=== PATIENT | female | born 2000 | race Caucasian/White ===

== ENCOUNTER 2022-06-27 16:42 | Emergency (ER) | payer OTHER ==
--- OUTSIDE RECORDS SUMMARY | 2022-06-27 16:51 | XMS REPORT | Continuity of Care Document ---
:2000 Author Organization [facility] t Address [address] [place] [address] Care Team Providers Name Role Phone KIAH LOPEZ Primary Care Physician Unavailable MAYRA MOE Attending Clinician Unavailable LIBBY REEVES Attending Clinician Unavailable Libby Odonnell Attending Clinician Ramona Baltazar Attending Clinician Kiah Lopez PA-C Attending Clinician KIAH LOPEZ Attending Clinician Unavailable DALIA LOVING Attending Clinician Unavailable Doctor Unassigned, Geraldine Attending Clinician Unavailable ETTA STRICKLAND Attending Clinician Unavailable ETTA STRICKLAND Admitting Clinician Unavailable Payers Payer Name Policy Type Policy Number Effective Date Expiration Date [facility] [id number] 2017 00:00:00 Problems Condition Condition Condition Status Onset Resolution Last Treating Co mments Source Name Details Category Date Date Treatment Clinician Date BV BV Disease Active 2019-0 Univers (bacterial (bacterial 2-05 it y of vaginosis[place] [facility] Allergies, Adverse Reactions, Alerts Allergy Allergy Status Severity Reaction(s) Onset Inactive Treating Comm ents Source Name Type Date Date Clinician NO KNOWN Drug Active Univers ALLERGIE Class ity of S [facility] Social History Social Habit Start Date Stop Date Quantity Comments Source Exposure to Yes [facility] SARS-CoV-2 (event) Medica l Branch Tobacco use and 2018-08-13 2018-08-13 Never used [facility] exposure 00:00:00 00:00:00 [facility] Sex Assigned At [birth year] [facility] 00:00:00 00:00:00 [facility] Branch Smoking Status Start Date Stop Date Source Never smoker [facility] Medications Ordered Filled Start Stop Current Ordering Indication Dosage Frequency Signature Comments Components Source Medication Medication Date Date Medication? Clinician (SIG) Name Name sulfamethox Yes [id number] 1{tbl} Take 1 Univers azole-trime 08-10 [id number] tablet by i ty of thoprim 00:00: mouth 2 [place] (BACTRIM 00 (two) Medical DS) 800-160 times Branch mg per daily. tablet sulfamethox Yes [id number] 1{tbl} Take 1 Univers azole-trime 08-10 [id number] tablet by i ty of thoprim 00:00: mouth 2 [place] (BACTRIM 00 (two) Medical DS) 800-160 times Branch mg per daily. tablet sulfamethox Yes [id number] 1{tbl} Take 1 Univers azole-trime 08-10 [id number] tablet by i ty of thoprim 00:00: mouth 2 [place] (BACTRIM 00 (two) Medical DS) 800-160 times Branch mg per daily. tablet mupirocin 2 2020- No [id number] Apply to Univers % ointment 08-10 [id number] area(s) 3 i ty of 00:00: 04:59 (three) [place] 00 :00 times Medical daily for Branch 7 days. mupirocin 2 2020- No [id number] Apply to Univers % ointment 08-10 [id number] area(s) 3 i ty of 00:00: 04:59 (three) [place] 00 :00 times Medical daily for Branch 7 days. Immunizations Ordered Immunization Filled Date Status Comments Sour ce Name Immunization Name Meningococcal B, OMV 2019-05-05 Completed Univ ersity of 00:00:00 [place] [facility] Meningococcal B, OMV 2019-05-05 Completed Univ ersity of 00:00:00 [facility] Meningococcal B, OMV 2019-05-05 Completed Univ ersity of 00:00:00 [facility] PPD (TB) 2018-11-27 Completed University of 00:00:00 [facility] Meningococcal 2018-11-27 Completed University of Oligosaccharide 00:00:00 [place] Med ical (groups A, C, Y and Branc h W-135) conjugate vaccine (MCV4O) Meningococcal B, OMV 2018-11-27 Completed Univ ersity of 00:00:00 [facility] Influenza Virus 2018-11-27 Completed Universit y of Vaccine Quad .5 mL IM 00:00:00 [place] [facility] 6+ MO Branch PPD (TB) 2018-11-27 Completed University of 00:00:00 [facility] Meningococcal 2018-11-27 Completed University of Oligosaccharide 00:00:00 [place] [facility] (groups A, C, Y and Branc h W-135) conjugate vaccine (MCV4O) Meningococcal B, OMV 2018-11-27 Completed Univ ersity of 00:00:00 [facility] Influenza Virus 2018-11-27 Completed Universit y of Vaccine Quad .5 mL IM 00:00:00 [place] [facility] 6+ MO Branch PPD (TB) 2018-11-27 Completed University of 00:00:00 [facility] Meningococcal 2018-11-27 Completed University of Oligosaccharide 00:00:00 [place] [facility] (groups A, C, Y and Branc h W-135) conjugate vaccine (MCV4O) Meningococcal B, OMV 2018-11-27 Completed Univ ersity of 00:00:00 [facility] Influenza Virus 2018-11-27 Completed Universit y of Vaccine Quad .5 mL IM 00:00:00 [place] [facility] 6+ MO Branch HPV 2015-09-14 Completed University of 00:00:00 [facility] Influenza Virus 2015-09-14 Completed Universit y of Vaccine - Whole 00:00:00 [facility] ical Branch HPV 2015-09-14 Completed University of 00:00:00 [facility] Influenza Virus 2015-09-14 Completed Universit y of Vaccine - Whole 00:00:00 [facility] ical Branch HPV 2015-09-14 Completed University of 00:00:00 [facility] Influenza Virus 2015-09-14 Completed Universit y of Vaccine - Whole 00:00:00 [facility] Varicella 2013-03-06 Completed University of (varivax)(chicken pox) 00:00:00 [facility] University of 00:00:00 [facility] Meningococcal Vaccine 2013-03-06 Completed Uni versity of 00:00:00 [facility] Varicella 2013-03-06 Completed University of (varivax)(chicken pox) 00:00:00 [facility] 2013-[facility] Completed University of 00:00:00 [facility] Meningococcal Vaccine 2013-03-06 Completed Uni versity of 00:00:00 [facility] Varicella 2013-03-06 Completed University of (varivax)(chicken pox) 00:00:00 [facility] 2013-03-06 Completed University of 00:00:00 [facility] Meningococcal Vaccine 2013-03-06 Completed Uni versity of 00:00:00 [facility] HEPATITIS A 2006-02-05 Completed University of 00:00:00 [facility] HEPATITIS A 2006-02-05 Completed University of 00:00:00 [facility] HEPATITIS A 2006-02-05 Completed University of 00:00:00 [facility] DTAP 2005-06-19 Completed University of 00:00:00 [facility] HEPATITIS A 2005-06-19 Completed University of 00:00:00 [facility] MMR 2005-06-19 Completed University of 00:00:00 [facility] Polio (IPV/OPV) 2005-06-19 Completed Universit y of 00:00:00 [facility] DTAP 2005-06-19 Completed University of 00:00:00 [facility] HEPATITIS A 2005-06-19 Completed University of 00:00:00 [facility] MMR 2005-06-19 Completed University of 00:00:00 [facility] Polio (IPV/OPV) 2005-06-19 Completed Universit y of 00:00:00 [facility] DTAP 2005-06-19 Completed University of 00:00:00 [facility] HEPATITIS A 2005-06-19 Completed University of 00:00:00 [facility] MMR 2005-06-19 Completed University of 00:00:00 [facility] Polio (IPV/OPV) 2005-06-19 Completed Universit y of 00:00:00 [facility] Pneumococcal 13 2003-05-22 Completed Universit y of Conjugate, PCV13 00:00:00 [facility] dical (Prevnar 13) Branch Pneumococcal 13 2003-05-22 Completed Universit y of Conjugate, PCV13 00:00:00 [facility] dical (Prevnar 13) Branch Pneumococcal 13 2003-05-22 Completed Universit y of Conjugate, PCV13 00:00:00 [facility] dical (Prevnar 13) Branch DTAP 2002-12-11 Completed University of 00:00:00 [facility] HIB 4 Dose Schedule 2002-12-11 Completed Unive rsity of 00:00:00 [facility] DTAP 2002-12-11 Completed University of 00:00:00 [facility] HIB 4 Dose Schedule 2002-12-11 Completed Unive rsity of 00:00:00 [facility] DTAP 2002-12-11 Completed University of 00:00:00 [facility] HIB 4 Dose Schedule 2002-12-11 Completed Unive rsity of 00:00:00 [facility] MMR 2002-08-15 Completed University of 00:00:00 [facility] MMR 2002-08-15 Completed University of 00:00:00 [facility] MMR 2002-08-15 Completed University of 00:00:00 [facility] Varicella 2002-04-24 Completed University of (varivax)(chicken pox) 00:00:00 [facility] Polio (IPV/OPV) 2002-04-24 Completed Universit y of 00:00:00 [facility] Varicella 2002-04-24 Completed University of (varivax)(chicken pox) 00:00:00 [facility] Polio (IPV/OPV) 2002-04-24 Completed Universit y of 00:00:00 [facility] Varicella 2002-04-24 Completed University of (varivax)(chicken pox) 00:00:00 [facility] Polio (IPV/OPV) 2002-04-24 Completed Universit y of 00:00:00 [facility] Hep B, Adol or Pedi 2002-01-30 Completed Unive rsity of Dosage 00:00:00 [facility] Hep B, Adol or Pedi 2002-01-30 Completed Unive rsity of Dosage 00:00:00 [place] [facility] Hep B, Adol or Pedi 2002-01-30 Completed Unive rsity of Dosage 00:00:00 [facility] DTAP 2001 Completed University of 00:00:00 [facility] HIB 4 Dose Schedule 2001 Completed Unive rsity of 00:00:00 [facility] Pneumococcal 13 2001 Completed Universit y of Conjugate, PCV13 00:00:00 [place] [facility] (Prevnar 13) Branch DTAP 2001 Completed University of 00:00:00 [facility] HIB 4 Dose Schedule 2001 Completed Unive rsity of 00:00:00 [facility] Pneumococcal 13 2001 Completed Universit y of Conjugate, PCV13 00:00:00 [place] [facility] (Prevnar 13) Branch DTAP 2001 Completed University of 00:00:00 [facility] HIB 4 Dose Schedule 2001 Completed Unive rsity of 00:00:00 [facility] Pneumococcal 13 2001 Completed Universit y of Conjugate, PCV13 00:00:00 [place] [facility] (Prevnar 13) Branch DTAP 2001 Completed University of 00:00:00 [facility] HIB 4 Dose Schedule 2001 Completed Unive rsity of 00:00:00 [facility] Pneumococcal 13 2001 Completed Universit y of Conjugate, PCV13 00:00:00 [place] [facility] (Prevnar 13) Branch Polio (IPV/OPV) 2001 Completed Universit y of 00:00:00 [facility] DTAP 2001 Completed University of 00:00:00 [facility] HIB 4 Dose Schedule 2001 Completed Unive rsity of 00:00:00 [facility] Pneumococcal 13 2001 Completed Universit y of Conjugate, PCV13 00:00:00 [place] [facility] (Prevnar 13) Branch Polio (IPV/OPV) 2001 Completed Universit y of 00:00:00 [facility] DTAP 2001 Completed University of 00:00:00 [facility] HIB 4 Dose Schedule 2001 Completed Unive rsity of 00:00:00 [facility] Pneumococcal 13 2001 Completed Universit y of Conjugate, PCV13 00:00:00 [place] [facility] (Prevnar 13) Branch Polio (IPV/OPV) 2001 Completed Universit y of 00:00:00 [facility] DTAP 2001 Completed University of 00:00:00 [facility] HIB 4 Dose Schedule 2001 Completed Unive rsity of 00:00:00 [facility] Pneumococcal 13 2001 Completed Universit y of Conjugate, PCV13 00:00:00 [facility] dical (Prevnar 13) Branch Polio (IPV/OPV) 2001 Completed Universit y of 00:00:00 [facility] DTAP 2001 Completed University of 00:00:00 [facility] HIB 4 Dose Schedule 2001 Completed Unive rsity of 00:00:00 [facility] Pneumococcal 13 2001 Completed Universit y of Conjugate, PCV13 00:00:00 [facility] dical (Prevnar 13) Branch Polio (IPV/OPV) 2001 Completed Universit y of 00:00:00 [facility] DTAP 2001 Completed University of 00:00:00 [facility] HIB 4 Dose Schedule 2001 Completed Unive rsity of 00:00:00 [facility] Pneumococcal 13 2001 Completed Universit y of Conjugate, PCV13 00:00:00 [facility] dical (Prevnar 13) Branch Polio (IPV/OPV) 2001 Completed Universit y of 00:00:00 [facility] Hep B, Adol or Pedi 2001 Completed Unive rsity of Dosage 00:00:00 [facility] Hep B, Adol or Pedi 2001 Completed Unive rsity of Dosage 00:00:00 [facility] Hep B, Adol or Pedi 2001 Completed Unive rsity of Dosage 00:00:00 [facility] Hep B, Adol or Pedi 2001 Completed Unive rsity of Dosage 00:00:00 [facility] Hep B, Adol or Pedi 2001 Completed Unive rsity of Dosage 00:00:00 [facility] Hep B, Adol or Pedi 2001 Completed Unive rsity of Dosage 00:00:00 [place] [facility] Vital Signs Vital Name Observation Time Observation Value Comments Source Systolic blood 2021-11-30 18:12:00 140 mm[Hg] Univer sity of pressure [facility] Diastolic blood 2021-11-30 18:12:00 90 mm[Hg] Unive rsity of pressure [facility] Heart rate 2021-11-30 18:12:00 77 /min Universi ty of [facility] Body temperature 2021-11-30 18:12:00 36.83 Jackie Univ ersity of [facility] Branch Respiratory rate 2021-11-30 18:12:00 18 /min Univ ersity of [facility] Body height 2021-11-30 18:12:00 165.1 cm Universi ty of [facility] Body weight 2021-11-30 18:12:00 85.957 kg Universi ty of [facility] BMI 2021-11-30 18:12:00 31.53 kg/m2 Universi ty of [facility] Oxygen saturation in 2021-11-30 18:12:00 97 /min University of Arterial blood by [employer] kirsten Pulse oximetry Branch Systolic blood 2021-08-10 13:58:00 118 mm[Hg] Univer sity of pressure [facility] Diastolic blood 2021-08-10 13:58:00 81 mm[Hg] Unive rsity of [facility] Heart rate 2021-08-10 13:58:00 71 /min Universi ty of [place] [facility] Body temperature 2021-08-10 13:58:00 36.33 Jackie [facility] Respiratory rate 2021-08-10 13:58:00 18 /min Univ ersity of [facility] Body weight 2021-08-10 13:58:00 84.823 kg Universi ty of [facility] Oxygen saturation in 2021-08-10 13:58:00 99 /min University of Arterial blood by [employer] kirsten Pulse oximetry Branch Procedures This patient has no known procedures. Encounters Start End Encounter Admission Attending Care Care Encounter Source Date/Time Date/Time Type Type Clinicians Facility Department ID 2021-12-01 2021-12-01 Outpatient Heike MOE [facility] [id number] Univers 09:40:00 09:40:00 MAYRA [id number] ity of [facility] 2021-12-01 2021-12-01 Outpatient R ABHI [facility] [id number] Univers 09:40:00 09:40:00 MAYRA doug [facility] 2021-11-30 2021-11-30 Outpatient R LEANDRO [facility] [id number] Univers 12:00:00 12:43:15 LIBBY ity [facility] 2021-11-30 2021-11-30 Urgent Maryellen Reevesy [facility] [id number] Univers 12:00:00 12:43:15 Care TusharRamona galvez [facility] [id number] ity of [place] [id number] [place] TAMIR?BLEA [id number] [address] MEDICAL OFFICE BUILDING 2021-11-30 2021-11-30 Outpatient R [facility] [id number] Univers 12:00:00 12:00:00 [id number] ity [facility] 2021-08-10 2021-08-10 Office [facility] [id number] Univers 08:51:37 09:11:37 Visit , Kiah Her [id number] it [place] of [id number] [facility] [id number] [address] 2021-08-10 2021-08-10 Outpatient R MOCCASIN [facility] [id number] Univers 09:10:00 09:10:00 , KIAH [id number] ity [facility] 2021-08-10 2021-08-10 Outpatient R [facility] [id number] Univers 09:10:00 09:10:00 , KIAH ity [facility] 2021-04-28 2021-04-28 Outpatient DE [facility] [id number] Univers 11:00:00 11:00:[id number] [facility] 2021-04-28 2021-04-28 Outpatient R DE [facility] [id number] Univers 11:00:00 11:00:[address] [facility] 2021-04-27 2021-04-27 Outpatient R [facility] [id number] Univers 15:00:00 15:00:00 [id number] [facility] 2021-04-27 2021-04-27 Outpatient R [facility] [id number] Univers 15:00:00 15:00:00 [facility] 2020-12-03 2020-12-03 [id number] Univers 08:10:00 08:10:00 , KIAH [id number] [facility] 2020-12-03 2020-12-03 Outpatient R [facility] [id number] Univers 08:10:00 08:10:00 , KIAH [facility] 2020-06-07 2020-06-07 Orders Doctor [place] [id number] 00:00:00 00:00:00 Only Unassigned, ASTRID [id number] [facility] [id number] 2020-06-01 2020-06-01 Telephone [facility] [id number] 00:00:00 00:00:00 , Kiah Her [id number] Pediatric [id number] Clinic [id number] 2020-05-11 2020-05-11 Office [facility] [id number] 15:23:57 16:04:15 Visit , Kiah Her [id number] Pediatric [id number] Clinic [id number] 2020-05-11 2020-05-11 Outpatient R [facility] [id number] Univers 15:30:00 15:30:00 , KIAH [id number] [facility] 2020-05-11 2020-05-11 Outpatient R [facility] [id number] Univers 15:30:00 15:30:00 , KIAH [facility] 2020-05-07 2020-05-07 Emergency X STRICKLAND, [facility] ERT [id number] Univers 13:38:12 16:55:00 ETTA miller [facility] Results This patient has no known results.
--- NOTE | 2022-06-27 17:17 | EDPHYS ---
Physician Documentation [facility] Name: Kanika Velez Age: 22 yrs Sex: Female : 2000 Arrival Date: 06/27/2022 Time: 16:42 Bed 11 Private MD: ED Physician Tejas Morejon HPI: 06/27 17:16 This 22 yrs old Female presents to ER via Ambulatory with complaints of Employee Health ms3 Related Complaint. 17:16 Type of Exposure: splash injury, of blood products. Area of exposure: eye. Context: The ms3 problem was sustained in the [facility] inpatient floor. Onset: The symptoms/episode began/occurred just prior to arrival. Symptoms: The patient does not have any acute complaints. Historical: - Allergies: 17:17 No Known Allergies; hb - Immunization history:: Adult Immunizations. - Social history:: Smoking status: . ROS: 17:16 Constitutional: Negative for fever, and chills. Eyes: Negative for injury, pain, ms3 redness, and discharge, Neck: Negative for injury, pain, and swelling, Cardiovascular: Negative for chest pain, and palpitations. Respiratory: Negative for shortness of breath, cough, wheezing, and pleuritic chest pain, Abdomen/GI: Negative for abdominal pain, nausea, vomiting, diarrhea, and constipation, MS/Extremity: Negative for injury and deformity, Skin: Negative for injury, rash, and discoloration. 17:16 All other systems are negative. Exam: 17:16 Constitutional: This is a well developed, well nourished patient who is awake, alert, ms3 and in no acute distress. Head/Face: Normocephalic, atraumatic. Eyes: Pupils equal round and reactive to light, extra-ocular motions intact. Lids and lashes normal. Conjunctiva and sclera are non-icteric and not injected. Periorbital areas with no swelling, redness, or edema. Neck: Trachea midline, no cervical lymphadenopathy. Supple, full range of motion without nuchal rigidity, or vertebral point tenderness. No Meningismus. Chest/axilla: Normal chest wall appearance and motion. Nontender with no deformity. Cardiovascular: Regular rate and rhythm with a normal S1 and S2. No gallops, murmurs, or rubs. Normal PMI, no JVD. No pulse deficits. Respiratory: Lungs have equal breath sounds bilaterally, clear to auscultation and percussion. No rales, rhonchi or wheezes noted. No increased work of breathing, no retractions or nasal flaring. Abdomen/GI: Soft, non-tender, with normal bowel sounds. No distension or tympany. No guarding or rebound. No evidence of tenderness throughout. Skin: Warm, dry with normal turgor. Normal color with no rashes, no lesions, and no evidence of cellulitis. MS/ Extremity: Pulses equal, no cyanosis. Neurovascular intact. Full, normal range of motion. Psych: Awake, alert, with orientation to person, place and time. Behavior, mood, and affect are within normal limits. Vital Signs: 17:16 BP 141 / 92; Pulse 68; Resp 16; Pulse Ox 100% on R/A; Weight 77.11 kg; Height 5 ft. 5 hb in. (165.10 cm); Pain 2/10; 17:16 Body Mass Index 28.29 (77.11 kg, 165.10 cm) hb MDM: 17:07 Patient medically screened. ms3 17:16 Data reviewed: vital signs, nurses notes, and as a result, I will discharge patient. ms3 Counseling: I had a detailed discussion with the patient and/or guardian regarding: the historical points, exam findings, and any diagnostic results supporting the discharge/admit diagnosis, the need for outpatient follow up, to return to the emergency department if symptoms worsen or persist or if there are any questions or concerns that arise at home. ED course: Patient declined HIV PEP. Discussed risks and benefits of PEP. Patient declines.. 06/27 17:08 Order name: Hepatitis B Core IgM Antibody EDMS 06/27 17:08 Order name: HIV AG/AB, 4th Gen W/ Reflex EDMS Administered Medications: No medications were administered Disposition Summary: 06/27/22 17:16 Discharge Ordered Location: Home ms3 Condition: Stable ms3 Diagnosis - Contact with and (suspected) exposure to potentially hazardous body fluids ms3 Discharge Instructions: - Discharge Summary Sheet ms3 - Body Fluid Exposure Information ms3 - Preventing Body Fluid Exposure ms3 Forms: - Medication Reconciliation Form ms3 - Thank You Letter ms3 - Antibiotic Education ms3 - Prescription Opioid Use ms3 Signatures: Dispatcher [employer] EDKathy Houston RN RN iw Baxter, Amanda, RN RN Tejas Francis DO DO ms3 Corrections: (The following items were deleted from the chart) 18:12 17:08 Hepatitis B Surface Ab,Quant ordered. EDMS EDMS 18:12 17:08 Hepatitis C RNA, Quant (PCR) ordered. EDMS EDMS
--- NOTE | 2022-06-27 18:13 | ER ---
Nurse's Notes [facility] Name: Kanika Velez Age: 22 yrs Sex: Female : 2000 Arrival Date: 06/27/2022 Time: 16:42 Bed 11 Private MD: Diagnosis: Contact with and (suspected) exposure to potentially hazardous body fluids Presentation: 06/27 17:16 Chief complaint: Got blood in left eye while checking a patient blood sugar. hb Coronavirus screen: At this time, the client does not indicate any symptoms associated with coronavirus-19. Ebola Screen: No symptoms or risks identified at this time. Risk Assessment: Do you want to hurt yourself or someone else? Patient reports no desire to harm self or others. Onset of symptoms was June 27, 2022. 17:16 Method Of Arrival: Ambulatory hb 17:16 Acuity: DARIO 3 hb 18:00 Initial Sepsis Screen: Does the patient meet any 2 criteria? Does the patient have a iw suspected source of infection? No. Patient's initial sepsis screen is negative. Triage Assessment: 18:00 General: Appears in no apparent distress. Behavior is calm, cooperative. iw Historical: - Allergies: 17:17 No Known Allergies; hb - Immunization history:: Adult Immunizations. - Social history:: Smoking status: . Screenin:11 Abuse screen: Denies threats or abuse. Denies injuries from another. Nutritional iw screening: No deficits noted. Tuberculosis screening: No symptoms or risk factors identified. Fall Risk None identified. Assessment: 18:00 General: Appears in no apparent distress. Behavior is calm, cooperative. Pain: Denies iw pain. Vital Signs: 17:16 BP 141 / 92; Pulse 68; Resp 16; Pulse Ox 100% on R/A; Weight 77.11 kg; Height 5 ft. 5 hb in. (165.10 cm); Pain 2/10; 17:16 Body Mass Index 28.29 (77.11 kg, 165.10 cm) hb ED Course: 16:45 Patient arrived in ED. rg4 16:48 Tejas Moerjon DO is Attending Physician. ms3 17:16 Arm band placed on. iw 17:17 Triage completed. hb 17:40 Kathy Wren, RN is Primary Nurse. iw 18:00 Patient has correct armband on for positive identification. iw 18:00 No provider procedures requiring assistance completed. Patient did not have IV access iw during this emergency room visit. Administered Medications: No medications were administered Medication: 18:00 VIS not applicable for this client. iw Outcome: 17:16 Discharge ordered by ms3 18:11 Discharged to home ambulatory. iw 18:11 Condition: good 18:11 Discharge instructions given to patient, Instructed on discharge instructions, follow up and referral plans. Demonstrated understanding of instructions, follow-up care. 18:12 Patient left the ED. iw Signatures: Kathy Wren RN RN Amanda Aguillon, Es Rios RN rg4 Tejas Morejon, DO ms3
[2022-06-27 19:15] VITALS: BP 141/92; O2SAT 100
== END 2022-06-27 18:12 | disposition home or self-care (01) ==
LOC: ER 16:42 → EDSTATUS 16:43 → ER 18:12
DX: Z77.21 Contact with and (suspected) exposure to potentially hazardous body fluids (principal)
CPT/HCPCS: 86705; 86803; 87340; 87389